=== PATIENT | male | born 1990 | race Caucasian/White ===

== ENCOUNTER 2017-09-08 12:31 | Observation (INO) | payer SELFPAY ==
[2017-09-08] MEDS ORDERED: Ondansetron ODT 8 MG TAB ONE ×2 (12:37→15:39)
[2017-09-08] MEDS ORDERED: Pantoprazole 40 MG VIAL ONE (12:37)
[2017-09-08 13:08] LABS: Hemoglobin 18.4 g/dL (14.0-18.0); Mean Corpuscular HGB CONC 34.2 g/dL (32.0-36.0); Mean Corpuscular Volume 90.9 fl (80.0-94.0); Mean Platelet Volume 7.9 fL (7.4-10.4); Platelet Count 276 thou/uL (130-400); RBC Distribution Width 12.2 % (11.5-14.5); Red Blood Cell (RBC) Count 5.91 mill/uL (4.70-6.10); White Blood Cell (WBC) Count 21.8 thou/uL (4.8-10.8)
--- NOTE | 2017-09-08 13:14 | RAD ---
ABDOMEN 1 VIEW: Date: 09/08/17 HISTORY: Abdominal pain. Hematemesis. FINDINGS: No comparison. Small amount of gas is apparent within the colon. Nondilated gas-filled loop of small bowel overlies the right mid abdomen. Metallic clips overlie the gallbladder fossa. Mild degenerative changes of the hips. IMPRESSION: 1. Status post cholecystectomy. 2. Nonspecific bowel gas pattern. POS: OFF
[2017-09-08 13:15] LABS: INR-International Normal Ratio 1.1; PTT 23.6 SEC (22.9-36.1); Prothrombin Time 14.3 SEC (12.0-14.7)
[2017-09-08 13:28] LABS: ALT (SGPT) 55 U/L (8-55); AST (SGOT) 34 U/L (5-34); Albumin 4.9 g/dL (3.5-5.0); Alkaline Phosphatase 137 U/L (40-150); Anion Gap 19 mmol/L (10-20); BUN (Urea Nitrogen) 5 mg/dL (8.9-20.6); Bilirubin, Total 0.8 mg/dL (0.2-1.2); Calc. Creatinine Clearance 0 mL/min (70-130); Calcium 10.4 mg/dL (7.8-10.44); Carbon Dioxide 24 mmol/L (22-29); Chloride 100 mmol/L (98-107); Estimated GFR-MDRD 85; Globulin 3.5 g/dL (2.4-3.5); Glucose 238 mg/dL (70-105); Lipase 22 U/L (8-78); Potassium 3.4 mmol/L (3.5-5.1); Protein, Total 8.4 g/dL (6.0-8.3); Sodium 140 mmol/L (136-145)
[2017-09-08 13:29] LABS: Band 11 % (5-11); Lymphocytes 6 % (21-51); MDiff Complete? YES; Monocytes 1 % (0-10); Neutrophil 81 % (42-75); PLT Morphology Comment Appears Adequate; RBC Morphology Normal; Reactive Lymphocytes 1 % (0-10)
[2017-09-08 16:16] LABS: Amphetamine Not Detected (NotDetected); Barbiturates Screen Not Detected (NotDetected); Benzodiazepine Screen Not Detected (NotDetected); Cocaine Metabolite Screen Not Detected (NotDetected); Medtox Control Line Valid? VALID (VALID); Medtox Reader # READER 4; Methadone Not Detected (NotDetected); Methamphetamine Not Detected (NotDetected); Opiate Screen Not Detected (NotDetected); Oxycodone Screen Not Detected (NotDetected); Phencyclidine (PCP) Not Detected (NotDetected); THC/Cannabinoid Screen Detected (NotDetected); Tricyclic Screen Not Detected (NotDetected)
[2017-09-08] MEDS ORDERED: Ondansetron HCl/PF 4 MG/2 ML Vial IVP PRN ×2 (16:53→18:04)
[2017-09-08] MEDS ORDERED: Sodium Chloride 0.9% 1,000 ML IV SCH (16:53)
[2017-09-08] MEDS ORDERED: Ondansetron ODT 4 MG TAB SL PRN (16:53)
[2017-09-08] MEDS ORDERED: Metoclopramide HCl 10 MG/2 ML VIAL IVP PRN (17:26)
[2017-09-08] MEDS ORDERED: Morphine 4 MG/ML VIAL SLOW IVP PRN (18:04)
[2017-09-08] MEDS ORDERED: Ondansetron ODT 4 MG TAB PO PRN (18:04)
[2017-09-08] MEDS: Sodium Chloride 0.9% 1,000 ML IV SCH (18:28)
[2017-09-08] MEDS: Pantoprazole 40 MG VIAL IVP SCH (21:38)
[2017-09-08] MEDS: Metoclopramide HCl 10 MG/2 ML VIAL IVP SCH (21:38)
--- NOTE | 2017-09-09 02:11 | HP ---
PRIMARY CARE PHYSICIAN: Dr. Zaki White. CHIEF COMPLAINT: Nausea and vomiting as well as abdominal pain. HISTORY OF PRESENT ILLNESS: Mr. Root is a pleasant 26-year-old gentleman who presents to the [facility] room complaining of severe nausea and vomiting, which he says has been going on since 08/04. H viktoriya says since then he has not been able to keep anything down and he has been having nausea with retch ing and vomiting almost daily. He says sometimes it will even wake up in the middle of the night remye brenda to get up and throw up. He says that it has been going on for about eight years now. He has se en multiple specialists without any known cause to his symptoms. He had been seen Dr. Weaver in the past and then more recently he decided to get a second opinion and has seen a doctor Dr. López at [facility] and [place], and he was scheduled to get a gastric emptying study today. In fact, he was in the pro cess of having the study done when he started to get "violently ill" and was unable to complete the t est. He tried to go home, started vomiting on the way home and as a result he came to the ER for matteo luation. He even says that he started to vomit up some streaks of blood as well. He also says that he has had chronic diarrhea for "years." He says that he has at least 3-5 loose stools a day. There is no blood, no melena. He also admits to a 30-pound weight loss in the last month. 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 He denies having any fever or chills. No dysphagia. When asked if he has had a gastric emptying study in the last 8 years during this time where he has had all these symptoms. He says th at he has never had one before. REVIEW OF SYSTEMS: Constitutional: There have been no fevers, chills, no night sweats. He states that he has lost 30 p ounds in the last month. HEENT: He denies any headache, no dizziness, no visual changes, no sore throat, no rhinorrhea or nec k pain, no adenopathy. Pulmonary: No hemoptysis, no cough, no wheezing. Cardiovascular: He denies any chest pain, no shortness of breath, no PND, no orthopnea. Gastrointestinal: As the history of present illness. Genitourinary: No urinary frequency or hematuria, no hesitancy. Neurologic: No focal weakness, numbness, no seizures. Psychiatric: No symptoms of anxiety or depression. Skin and Integument: No skin changes. No rash. PAST MEDICAL HISTORY: Negative. PAST SURGICAL HISTORY: He has had a cholecystectomy. ALLERGIES: No known drug allergies. SOCIAL HISTORY: He is . He smokes a half a pack of cigarettes daily for 15 years. He says h e occasionally drinks. When asked, he says he has ever smoked marijuana. He initially said no, then he stated well occasionally. When asked when he last smoked marijuana, he said about a month ago; h owever, it is noted that his urine drug screen was positive for cannabis. MEDICATIONS: Omeprazole 40 mg daily as well as Pepcid 20 mg a day. FAMILY HISTORY: Significant for hypertension and bone and uterine cancer. PHYSICAL EXAMINATION: GENERAL: He is alert and oriented. He appears to be in no acute distress. VITAL SIGNS: Blood pressure was 126/87, heart rate 77, respiratory rate of 18, temperature was 97.6, and O2 sat was 98% on room air. HEENT: His pupils are equal, round, and reactive. Extraocular muscles are intact. Sclerae are anic teric. Throat: There is no erythema, no exudates. He has poor dentition. NECK: There is no adenopathy, no bruits. LUNGS: Clear to auscultation. There was no wheezing, no rales. CARDIOVASCULAR: He has a normal S1, S2. I do not appreciate an S3 or S4. No murmurs, clicks or rub s. ABDOMEN: Obese, it is soft, nontender, nondistended. Positive for bowel sounds. There is no reboun d or guarding. EXTREMITIES: There is no clubbing, cyanosis, no edema. NEUROLOGICALLY: The exam is grossly nonfocal. His muscle strength was 5/5 in both his upper and low er extremities. Reflexes are normal. LABORATORY: White blood cell count was 21.8, hemoglobin is 18.4, hematocrit is 53.7, platelet count was 276. INR was 1.1. Sodium 140, potassium 3.4, chloride is 100, CO2 is 24, BUN of 5, creatinine 1 .04, glucose was 238. Urine drug screen was positive for cannabis. He had an abdominal x-ray which was post-cholecystectomy with a nonspecific bowel gas pattern. ASSESSMENT AND PLAN: 1. This is a pleasant 26-year-old gentleman who presents with chronic nausea and vomiting. In fact, he says it has been happening for over eight years now. He has had multiple upper endoscopies as we ll as multiple CT scans and even a colonoscopy which has not revealed the etiology of his symptoms an d was in the process of having a gastric emptying study in which he was unable to tolerate the test. Since he admits to some blood in the vomitus, he will be placed in observation and Gastroenterology will be consulted as he may need another EGD to elucidate the etiology of the hematemesis. In the in terim, he will be placed on IV Protonix as well as Reglan p.r.n. and IV fluids. 2. Elevated glucose, this could be related from the stress of vomiting; however, it is a bit higher than we would expect in this case. Therefore, we will get a hemoglobin A1c to help screen him for di abetes mellitus. 3. Leukocytosis. Again, this may be related to demargination from the vomiting and we will also rep eat the CBC in the a.m. He does not have any obvious source of an infection at this time. He is afe brile and outside of the vomiting, he appears relatively healthy and nontoxic.
[2017-09-09] MEDS: Sodium Chloride 0.9% 1,000 ML IV SCH ×2 (04:26→10:49)
[2017-09-09 04:37] LABS: #Monocytes 0.6 thou/uL (0.11-0.59); %Basophils 0.1 % (0.0-1.0); %Eosinophils 0.1 % (0.0-10.0); %Lymphocytes 17.4 % (21.0-51.0); %Monocytes 4.8 % (0.0-10.0); %Neutrophils 77.6 % (42.0-75.0); Hemoglobin 14.9 g/dL (14.0-18.0); Mean Corpuscular HGB CONC 34.7 g/dL (32.0-36.0); Mean Corpuscular Hemoglobin 31.8 pg (27.0-31.0); Mean Corpuscular Volume 91.5 fl (80.0-94.0); Mean Platelet Volume 7.8 fL (7.4-10.4); Platelet Count 175 thou/uL (130-400); RBC Distribution Width 12.1 % (11.5-14.5); Red Blood Cell (RBC) Count 4.69 mill/uL (4.70-6.10); White Blood Cell (WBC) Count 11.6 thou/uL (4.8-10.8)
[2017-09-09 04:50] LABS: Anion Gap 13 mmol/L (10-20); BUN (Urea Nitrogen) 4 mg/dL (8.9-20.6); Calc. Creatinine Clearance 262 mL/min (70-130); Calcium 8.7 mg/dL (7.8-10.44); Carbon Dioxide 23 mmol/L (22-29); Chloride 108 mmol/L (98-107); Estimated GFR-MDRD Greater than 90; Glucose 103 mg/dL (70-105); Potassium 3.7 mmol/L (3.5-5.1); Sodium 140 mmol/L (136-145)
[2017-09-09] MEDS: Metoclopramide HCl 10 MG/2 ML VIAL IVP SCH ×2 (06:04→16:20)
--- NOTE | 2017-09-09 10:19 | CON ---
DATE OF CONSULTATION: 09/08/2017 REFERRING PHYSICIAN: Ulysses Moss MD REASON FOR CONSULTATION: Persistent nausea and vomiting, and history of vomiting blood. HISTORY OF PRESENT ILLNESS: Mr. Papi Root is a 26-year-old, male seen in the ER this afternoon with a history of intractable nausea and vomiting since this morning. Apparently, he has been seeing Dr. López at [facility] in [place]. This patient has had chronic n ausea and vomiting over the years. Dr. López ordered a gastric-emptying study. The patient went to gastric-emptying study this morning and he had some egg meal. After eating the egg meal, he started to have severe nausea, vomiting, and kept throwing up. The gastric-emptying study could not be done. He states he is not able to stop vomiting, and he vomited some blood. Although he states he vomite d some blood, his blood count is actually normal. The patient has had chronic nausea and vomiting of f and on. The patient saw Dr. Joe Weaver before in 2015 and he had an evaluation. Abdominal CAT scan was negative and also an EGD was negative in 2015. He was hospitalized in November 2016 with s imilar symptoms of abdominal pain, nausea, and vomiting. An abdominal CAT scan done showed questiona ble thickening of the colon and it was called as colitis by the radiologist.. The patient was seen b mateusz French in 10/2016. He underwent an EGD, which revealed severe erosions in lower esophagus. He also had a duodenal polyp that was biopsied. The colonoscopy was negative except for mild sigmo id diverticulosis. The patient was discharged home in 10/2016. He states he did well for about a mo nth and started having nausea and vomiting again. When he wakes up in the morning, he feels sick to stomach and starts throwing up again. This is going on for several months. He has seen Dr. López in 08/2017 and it was told that he could have gastric-emptying problem. The other gastric emptying jayshree dy, which was subsequently done today, but could not be done because of nausea and vomiting. He also complains of upper abdominal pain, predominantly across upper abdomen. There is a history of hemato chezia. He has had no melena. His blood count actually on admission today was actually pretty much normal. There has been some element of hemoconcentration as his hemoglobin is 18.4, hematocrit . His WBC count is . The patient has a history of weight loss of 30 pounds over the last few months. ALLERGIES: None. SOCIAL HISTORY: The patient smokes one half packet of cigarettes per day. He does not drink alcohol . Does not use any drugs. Does not smoke marijuana. MEDICAL ILLNESSES: 1. Recurrent nausea and vomiting, etiology unclear. 2. EGD in 2017 did show few erosions over the distal esophagus and a polyp in the duodenum. 3. Status post cholecystectomy in 2013 for gallstones. He has no diabetes, hypertension, lung disease. FAMILY HISTORY: Mother, chronic acid reflux and Funk's mucosa. MEDICATIONS AT HOME: Include Phenergan and Zofran, it does not help to control the vomiting. REVIEW OF SYSTEMS: Ten-point systems reviewed. Constitutional: History of weight loss. History of recurrent nausea and vomiting. No history of fever. No history of night sweats. No history of any weakness. HEENT: Good vision. No hearing problem. No epistaxis. Neck: No neck pain. Respirato ry: No history of chronic cough, hemoptysis, dyspnea. Cardiovascular: No chest pain. No palpitati on. No dyspnea, orthopnea, or PND. Gastrointestinal: As in history of present illness. Genitourin merari: Unremarkable. Musculoskeletal: Unremarkable. Hematologic: Unremarkable. Neuropsychiatric: Unremarkable. PHYSICAL EXAMINATION: GENERAL: The patient is obese, appears comfortable. He is in no distress. VITAL SIGNS: His vital signs are actually stable. He is afebrile. Pulse is 80, blood pressure 130/ 70. HEENT: Conjunctivae clear. NECK: Supple. No adenitis or thyromegaly. CARDIOVASCULAR: First and second heart sounds are normal. LUNGS: Clear to auscultation. ABDOMEN: Soft and nondistended. Abdomen is actually nontender, although . There is no organo megaly. No masses. EXTREMITIES: No edema. LABORATORY DATA: WBC 20,800, hemoglobin is 18.4, hematocrit 53.7, platelet count is 276,000, polymor phs 81, bands 11, lymphocytes 6. Serum chemistries: Sodium is 140, potassium 3.4, chloride 100, bic arbonate 24, BUN is 5, creatinine is 1.04, glucose 238, calcium 10.4, bilirubin 0.8, AST 34, ALT 55, alkaline phosphatase 137, total protein 8.4, albumin 4.9. Abdominal x-ray is basically unremarkable. CLINICAL IMPRESSION: A 26-year-old, male with intractable nausea and vomiting, which has b een going on for several years. Previous workup including CAT scan, EGD, colonoscopy is negative. T he patient is status post laparoscopic cholecystectomy. (06:20) exam is very benign. Also, th ere is nothing to suggest he has pancreatitis. RECOMMENDATIONS: 1. Start IV Reglan 10 mg q.6-8 hours. 2. If the patient's vomiting persist, continue NG tube. 3. EGD tomorrow morning and I will make further recommendations.
[2017-09-09] MEDS: Pantoprazole 40 MG VIAL IVP SCH (10:50)
--- NOTE | 2017-09-09 15:33 | PDOC.PN ---
- Subjective Encounter Start Date: 09/09/17 Encounter Start Time: 15:27 Mr. Ibrahim was seen today in follow-up. - Objective Resuscitation Status: Resuscitation Status FULL:Full Resuscitation MAR Reviewed: Yes Vital Signs & Weight: Vital Signs (12 hours) Temp Pulse Resp BP BP Pulse Ox 09/09/17 10:46 98.2 F 50 L 20 138/76 96 09/09/17 07:25 98.4 F 66 16 128/62 96 09/09/17 04:00 98.3 F 87 18 132/69 96 Weight Weight 263 lb 8 oz I&O: 09/08/17 09/09/17 09/10/17 06:59 06:59 06:59 Intake Total 1500 Output Total 200 Balance 1300 Result Diagrams: 09/09/17 04:20 09/09/17 04:20 Phys Exam - Physical Examination HEENT: PERRLA Respiratory: no wheezing, no rales, no rhonchi, clear to auscultation bilateral Cardiovascular: RRR, no significant murmur, no rub Gastrointestinal: soft, non-tender, positive bowel sounds Musculoskeletal: no edema Dx/Plan (1) Nausea and vomiting Code(s): R11.2 - NAUSEA WITH VOMITING, UNSPECIFIED Status: Acute - Plan * Nausea and Vomiting- ? etiology EGD was negative- this is chronic and has been ongoing for the past 8 years. He was in the process of obtaining a second opinion from Dr. López at [facility]. He is not happy with the outcome, and his and mother as well. I also recommended that they could pursue another opinion from a tertiary Center such as in [place] or [place]. This is not likely due to a brain tumor, as since this has been for 8 years, it is likely that other symptoms would have arisen by now, and his symptoms are accompanied by abdominal pain * He is stable for discharge home
--- NOTE | 2017-09-09 15:46 | OP ---
DATE OF PROCEDURE: 09/09/2017 OPERATIVE PROCEDURE: Esophagogastroduodenoscopy with biopsy. PREOPERATIVE DIAGNOSES: A 26-year-old male with abdominal pain, nausea, and vomiting, hist ory of vomiting blood yesterday. The patient underwent esophagogastroduodenoscopy. POSTOPERATIVE DIAGNOSES: 1. Normal esophageal mucosa from mild mucosal hyperemia in distal esophagus. 2. Patchy areas of mucosal edema over the proximal stomach and also gastric antrum. 3. Mild duodenitis. No Susan-Canseco tear seen. PROCEDURE IN DETAIL: The patient was placed on his left lateral position and was given sedation by A nesthesia Department. A Pentax video gastroscope under direct vision was passed down the oropharynx, past the GE junction, into the stomach and subsequently into the descending duodenum. The esophagea l mucosa appears normal except for mild mucosal hyperemia over the distal esophagus. No erosions or any ulcers seen. Over the proximal stomach, there is an area of mucosal edema seen. The fundus and cardia, no pathology seen. The gastric body, no pathology seen. The gastric antrum shows patchy are as of mucosal edema. The duodenal bulb again showed mild mucosal erythema. Overall, the exam is alicia y benign. There is no Susan-Canseco tear seen and no ulcer disease seen. The findings were very min imal on the patient's abdominal pain, nausea, and vomiting. RECOMMENDATIONS: 1. Discontinue n.p.o. 2. Clear liquid diet. 3. Diet: As tolerated. 4. Continue IV Reglan. 5. Await gastric biopsy.
[2017-09-09 15:48] VITALS: BP 146/76; TEMP 98.1
[2017-09-09] MEDS ORDERED: Lidocaine 1% PF 5 ML VIAL ONE (20:09)
[2017-09-09] MEDS ORDERED: ePHEDrine/0.9% NaCl/PF SYRINGE 50 mg/10 ml ONE (20:09)
[2017-09-09] MEDS ORDERED: PROPOFOL 200 MG/20 ML VIAL ONE (20:09)
--- NOTE | 2017-09-10 01:44 | DIS ---
PRIMARY CARE PHYSICIAN: Dr. Zaki White. DATE OF ADMISSION: 09/08/2017 DATE OF DISCHARGE: 09/09/2017 DISCHARGE DISPOSITION: Home. PRIMARY DISCHARGE DIAGNOSES: 1. Nausea and vomiting, etiology is known. 2. Cannabis abuse. DISCHARGE MEDICATIONS: Include Zofran 4 mg the orally disintegrating tablet q.6 hours as needed, cao toprazole 40 mg daily, and famotidine 40 mg daily. PROCEDURES DONE DURING ADMISSION: The patient had an upper endoscopy which was significant for some mild duodenitis. There was no Susan-Canseco tear. There were some patchy areas of mucosal edema, bu t otherwise normal. The patient also had an abdominal x-ray, which demonstrated a nonspecific bowel gas pattern. CODE STATUS: FULL CODE. ALLERGIES: No known drug allergies. HOSPITAL COURSE: Mr. Root is a 26-year-old gentleman who presented to the emergency room with com plaints of nausea and vomiting. He says this has been a persistent problem over the last 8 years. Nathan sadler has had numerous evaluations from different hand turner, all of which have been unrevealing. He had actually been seeing Dr. López and a second opinion where he was undergoing a scheduled efren luis emptying study where he was unable to complete the test due to severe nausea and vomiting, he say s after he tried to swallow the egg. This is when he came to our facility for evaluation. He was pl aced in observation and underwent upper endoscopy. This was essentially unrevealing with more or les s negative study. The patient will be discharged home. We will place him on Zofran as needed for th e nausea and vomiting and have recommended that he follow up with Dr. López to see what other testing can be done and if there was another way of testing for gastroparesis besides the standard gastric e mptying study. I have also explained to him that if he is unhappy with the workup which has been don e so far with regard to the specialist here as well as specialist that he have seen in the community, i.e., Dr. López, then he can refer himself to a tertiary center such as in [place] or [facility] in [place] to see if they have any other ideas or recommendations to offer.
== END 2017-09-09 16:29 | disposition home or self-care (01) ==
LOC: ERS 12:31 → 2SW 15:34 → ERS 15:35
PROVIDERS: ADMIT Internal Medicine; ATTEND Internal Medicine
PROC: 0DB68ZX Excision of Stomach, Via Natural or Artificial Opening Endoscopic, Diagnostic (ICD-10-PCS; principal; 2017-09-09)
DX: R11.2 Nausea with vomiting, unspecified (principal); R10.9 Unspecified abdominal pain; K29.80 Duodenitis without bleeding; F17.210 Nicotine dependence, cigarettes, uncomplicated; R73.09 Other abnormal glucose; D72.829 Elevated white blood cell count, unspecified; F12.10 Cannabis abuse, uncomplicated; Z79.899 Other long term (current) drug therapy; Z90.49 Acquired absence of other specified parts of digestive tract; Z98.890 Other specified postprocedural states
CPT/HCPCS: 36415; 74018; 80048; 80053; 80306; 83036; 83690; 85025; 85610; 85730; 86850; 86900; 86901; 88305; 88312; 90471; 90732; 96361; 96374; 96375; 96376; C9113; G0009; G0378; J2001; J2270; J2405; J2704; J2765

== ENCOUNTER 2018-05-24 13:47 | Emergency (ER) | payer SELFPAY ==
[~2018-05-24 13:47] MED LIST: Iopamidol 370 76% 100 ML VIAL ONE
[2018-05-24 14:52] LABS: #Basophils 0.1 thou/uL (0.0-0.2); #Lymphocytes 2.3 thou/uL (1.20-3.40); #Monocytes 0.7 thou/uL (0.11-0.59); #Neutrophils 8.6 thou/uL (1.40-6.50); %Basophils 0.5 % (0.0-1.0); %Eosinophils 0.4 % (0.0-10.0); %Lymphocytes 19.3 % (21.0-51.0); %Monocytes 6.2 % (0.0-10.0); %Neutrophils 73.6 % (42.0-75.0); Hemoglobin 18.3 g/dL (14.0-18.0); Mean Corpuscular HGB CONC 33.4 g/dL (32.0-36.0); Mean Corpuscular Hemoglobin 30.1 pg (27.0-31.0); Mean Corpuscular Volume 90.2 fL (78.0-98.0); Mean Platelet Volume 8.2 fL (7.4-10.4); Platelet Count 218 thou/uL (130-400); RBC Distribution Width 12.5 % (11.5-14.5); Red Blood Cell (RBC) Count 6.06 mill/uL (4.70-6.10); White Blood Cell (WBC) Count 11.7 thou/uL (4.8-10.8)
[2018-05-24 15:14] LABS: ALT (SGPT) 91 U/L (8-55); AST (SGOT) 53 U/L (5-34); Albumin 4.4 g/dL (3.5-5.0); Alkaline Phosphatase 129 U/L (40-150); Anion Gap 19 mmol/L (10-20); BUN (Urea Nitrogen) 9 mg/dL (8.9-20.6); Bilirubin, Total 1.5 mg/dL (0.2-1.2); Calc. Creatinine Clearance 0 mL/min (70-130); Calcium 10.4 mg/dL (7.8-10.44); Carbon Dioxide 26 mmol/L (22-29); Chloride 91 mmol/L (98-107); Estimated GFR-MDRD Greater than 90; Globulin 3.5 g/dL (2.4-3.5); Glucose 97 mg/dL (70-105); Potassium 3.3 mmol/L (3.5-5.1); Protein, Total 7.9 g/dL (6.0-8.3); Sodium 133 mmol/L (136-145)
[2018-05-24] MEDS ORDERED: Morphine 4 MG/ML VIAL ONE ×2 (18:01→19:45)
[2018-05-24] MEDS ORDERED: Ondansetron PF 4 MG/2 ML Vial ONE ×2 (18:01→19:45)
--- NOTE | 2018-05-24 20:04 | CT ---
CT ABDOMEN WITH CONTRAST CT PELVIS WITH CONTRAST: DATE: 05/24/18 at 7:04 p.m. HISTORY: 27-year-old male with right upper quadrant abdominal pain. COMPARISON: 10/12/16 TECHNIQUE: IV injection of iodinated contrast media: 100 mL Isovue 370 Oral contrast media: Not administered. FINDINGS: Cholecystectomy clips in the gallbladder fossa are again noted. There is diffusely low hepatic attenu ation, lower than on the previous study, consistent with a greater degree of fatty liver. No portal v ein or hepatic vein thrombosis. No intrahepatic biliary ductal dilation. No solid or cystic hepatic m ass lesion. No ascites or pneumoperitoneum. Normal appendix, urinary bladder, abdominal aorta, kidney s, adrenals, pancreas, and spleen. No colonic diverticulitis. No small bowel dilation. IMPRESSION: 1. Hepatic steatosis. 2. Status post cholecystectomy. VU Krause POS: ZEKE
--- NOTE | 2018-05-24 20:10 | ULT ---
ULTRASOUND ABDOMEN LIMITED: (RIGHT UPPER QUADRANT) 05/24/18 at 7:25 p.m. HISTORY: Right upper quadrant abdominal pain in a 27-year-old male. FINDINGS: Gallbladder: Surgically absent. Common duct: 6 mm. Liver: Diffusely increased echogenicity consistent with fatty liver. Pancreas: Poorly visualized. Right kidney: No hydronephrosis. IMPRESSION: 1. Status post cholecystectomy. 2. Hepatic steatosis. VU Krause POS: ZEKE
[2018-05-24 21:32] LABS: Bilirubin Moderate (Negative); Blood, Urine Negative (Negative); Clarity CLEAR (Clear); Glucose, Urine (Dipstick) Negative (Negative); Leukocyte Negative (Negative); Nitrite Negative (Negative); Protein, Urine (Dipstick) Trace mg/dL (Neg-Trace)
[2018-05-24 21:37] LABS: Specific Gravity, Urine Greater than 1.060 (1.002-1.036)
[2018-05-24] MEDS ORDERED: Ketorolac Tromethamine 30 MG/ML VIAL ONE (21:37)
== END 2018-05-24 22:00 | disposition home or self-care (01) ==
LOC: ERS 13:47
DX: R10.11 Right upper quadrant pain (principal); K21.9 Gastro-esophageal reflux disease without esophagitis; F17.210 Nicotine dependence, cigarettes, uncomplicated
CPT/HCPCS: 36415; 74177; 76705; 80053; 81003; 83690; 85025; 96361; 96374; 96375; 96376; J1885; J2270; J2405

== ENCOUNTER 2020-04-11 22:53 | Emergency (ER) | payer SELFPAY ==
[2020-04-11 23:47] LABS: #Basophils 0.1 thou/uL (0.0-0.2); #Eosinphils 0.3 thou/uL (0.0-0.7); #Monocytes 0.5 thou/uL (0.11-0.59); #Neutrophils 7.1 thou/uL (1.40-6.50); %Basophils 0.7 % (0.0-1.0); %Eosinophils 2.8 % (0.0-10.0); %Lymphocytes 27.5 % (21.0-51.0); %Monocytes 4.4 % (0.0-10.0); %Neutrophils 64.6 % (42.0-75.0); Hemoglobin 16.7 g/dL (14.0-18.0); Mean Corpuscular HGB CONC 34.7 g/dL (32.0-36.0); Mean Corpuscular Hemoglobin 30.6 pg (27.0-31.0); Mean Corpuscular Volume 88.4 fL (78.0-98.0); Mean Platelet Volume 7.9 fL (7.4-10.4); Platelet Count 221 thou/uL (130-400); RBC Distribution Width 12.2 % (11.5-14.5); Red Blood Cell (RBC) Count 5.44 mill/uL (4.70-6.10)
[2020-04-12 00:06] LABS: ALT (SGPT) 65 U/L (8-55); AST (SGOT) 33 U/L (5-34); Albumin 4.3 g/dL (3.5-5.0); Alkaline Phosphatase 131 U/L (40-110); Anion Gap 17 mmol/L (10-20); BUN (Urea Nitrogen) 6 mg/dL (8.9-20.6); Bilirubin, Total 0.7 mg/dL (0.2-1.2); Calc. Creatinine Clearance 0 mL/min (70-130); Calcium 9.3 mg/dL (7.8-10.44); Carbon Dioxide 26 mmol/L (22-29); Chloride 100 mmol/L (98-107); Globulin 3.2 g/dL (2.4-3.5); Glucose 94 mg/dL (70-105); Protein, Total 7.5 g/dL (6.0-8.3); Sodium 139 mmol/L (136-145)
[2020-04-12 00:49] LABS: Bilirubin Negative (Negative); Blood, Urine Negative (Negative); Clarity Clear (Clear); Glucose, Urine (Dipstick) Normal (Negative); Ketone, Urine 60 mg/dL (Negative); Leukocyte Negative Leu/uL (Negative); Nitrite Negative (Negative); Protein, Urine (Dipstick) Negative (Neg-Trace); pH, Urine 5.5 (5.0-9.0)
[2020-04-12] MEDS ORDERED: Morphine 4 MG/ML VIAL ONE (02:16)
[2020-04-12] MEDS ORDERED: Ondansetron PF 4 MG/2 ML Vial ONE (02:16)
--- NOTE | 2020-04-12 11:48 | CT ---
PRELIMINARY REPORT/[facility]/EMERGENCY AFTER HOURS PROCEDURE: EXAM: CT Abdomen and Pelvis with Intravenous Contrast CLINICAL HISTORY: PT REPORTS PAIN "JUST TO THE RIGHT OF MY BELLY BUTTON." ALSO REPORTS NAUSEA AND RADAMES RRHEA. DENIES FEVER TECHNIQUE: Axial computed tomography images of the abdomen and pelvis with intravenous contrast. CONTRAST: With; [id number] 100 ML COMPARISON: None provided. FINDINGS: LUNG BASES: No basilar airspace consolidation or pleural effusion. LIVER: Hepatic steatosis. GALLBLADDER AND BILE DUCTS: The gallbladder is surgically absent. No ductal dilation. PANCREAS: Unremarkable. SPLEEN: Unremarkable. ADRENAL GLANDS: Unremarkable. KIDNEYS, URETERS, AND BLADDER: Unremarkable. No hydronephrosis or nephrolithiasis. No ureteral or shira dder calculi. STOMACH AND BOWEL: The stomach and small bowel are unremarkable. Colonic wall thickening and submuco karina edema extending from the cecum to the rectum. Scattered right-sided colonic diverticulosis. APPENDIX: No CT evidence for appendicitis. PERITONEUM: No free fluid. No free air. LYMPH NODES: No lymphadenopathy. REPRODUCTIVE: Unremarkable as visualized. VASCULATURE: No aortic aneurysm. BONES: No fracture or suspicious osseous abnormality. ABDOMINAL WALL AND SOFT TISSUES: Unremarkable. IMPRESSION: 1. Pancolitis of a likely infectious or inflammatory etiology. Vascular and neoplastic etiologies a re much less likely. 2. Additional findings as described above. ELECTRONICALLY SIGNED BY: James Belcher MD Apr 12, 2020 2:05:37 AM EMBROIDERY FINISHER FINAL REPORT CT ABDOMEN AND PELVIS WITH IV CONTRAST: Liver, spleen, pancreas, and kidneys unremarkable. Small bowel loops appear normal. Preliminary report described mural thickening of the colon; however, this is suboptimally evaluated d ue to nondistention. Mild colitis cannot be excluded. I am in agreement with the preliminary report. POS: AGW
== END 2020-04-12 02:54 | disposition home or self-care (01) ==
LOC: ERS 22:53
DX: K51.00 Ulcerative (chronic) pancolitis without complications (principal); K21.9 Gastro-esophageal reflux disease without esophagitis; F17.210 Nicotine dependence, cigarettes, uncomplicated
CPT/HCPCS: 36415; 74177; 80053; 81003; 85025; 96374; 96375; J2270; J2405

== ENCOUNTER 2020-09-12 13:48 | Inpatient (IN) | payer SELFPAY ==
[~2020-09-12 13:48] MED LIST changes: -Iopamidol 370 76% 100 ML VIAL ONE; +Iopamidol-370 76% 500 ML 1 ML ONE
[2020-09-12] MEDS ORDERED: Ondansetron ODT 4 MG TAB ONE ×2 (14:28→15:13)
[2020-09-12 14:40] LABS: #Basophils 0.1 thou/uL (0.0-0.2); #Eosinphils 0.1 thou/uL (0.0-0.7); #Lymphocytes 1.9 thou/uL (1.20-3.40); #Monocytes 0.9 thou/uL (0.11-0.59); #Neutrophils 13.6 thou/uL (1.40-6.50); %Basophils 0.3 % (0.0-1.0); %Eosinophils 0.7 % (0.0-10.0); %Lymphocytes 11.7 % (21.0-51.0); %Monocytes 5.4 % (0.0-10.0); %Neutrophils 81.8 % (42.0-75.0); Hemoglobin 18.5 g/dL (14.0-18.0); Mean Corpuscular HGB CONC 34.3 g/dL (32.0-36.0); Mean Corpuscular Hemoglobin 30.3 pg (27.0-31.0); Mean Corpuscular Volume 88.3 fL (78.0-98.0); Mean Platelet Volume 8.2 fL (7.4-10.4); Platelet Count 238 thou/uL (130-400); RBC Distribution Width 12.5 % (11.5-14.5); White Blood Cell (WBC) Count 16.6 thou/uL (4.8-10.8)
[2020-09-12 14:55] LABS: ALT (SGPT) 52 U/L (8-55); AST (SGOT) 25 U/L (5-34); Albumin 4.5 g/dL (3.5-5.0); Alkaline Phosphatase 124 U/L (40-110); Anion Gap 15 mmol/L (10-20); BUN (Urea Nitrogen) 11 mg/dL (8.9-20.6); Bilirubin, Total 1.6 mg/dL (0.2-1.2); Calc. Creatinine Clearance 0 mL/min (70-130); Calcium 10.1 mg/dL (7.8-10.44); Carbon Dioxide 31 mmol/L (22-29); Chloride 91 mmol/L (98-107); Globulin 3.5 g/dL (2.4-3.5); Glucose 144 mg/dL (70-105); Lipase 40 U/L (8-78); Sodium 134 mmol/L (136-145)
[2020-09-12 15:03] LABS: Potassium 2.8 mmol/L (3.5-5.1)
[2020-09-12] MEDS ORDERED: Morphine 4 MG/ML VIAL ONE (15:28)
[2020-09-12] MEDS ORDERED: Promethazine HCl 25 MG/ML VIAL ONE (15:28)
[2020-09-12] MEDS ORDERED: Potassium Chloride 20 MEQ TAB ONE (16:39)
[2020-09-12] MEDS ORDERED: NS 0.9% w/ 40 MEQ KCL 1,000 ML IV SCH (16:45)
[2020-09-12] MEDS ORDERED: Piperacillin/Tazobactam 4.5 GM VIAL ONE (17:36)
[2020-09-12] MEDS ORDERED: Acetaminophen 325 MG TAB PO PRN (17:57)
[2020-09-12] MEDS ORDERED: HYDROcodone/Acetaminophen 5/325 mg Tablet PO PRN (17:57)
[2020-09-12 18:21] LABS: Bilirubin Negative (Negative); Blood, Urine Negative (Negative); Clarity Clear (Clear); Glucose, Urine (Dipstick) Normal (Negative); Ketone, Urine 20 mg/dL (Negative); Leukocyte Negative Leu/uL (Negative); Nitrite Negative (Negative); Protein, Urine (Dipstick) 20 mg/dL (Neg-Trace); Urobilinogen Normal mg/dL (Less than 2)
[2020-09-12 18:22] LABS: Specific Gravity, Urine 1.048 (1.002-1.036)
[2020-09-12] MEDS ORDERED: Fioricet 325/50/40 mg Tablet PO PRN (18:25)
[2020-09-12 20:06] VITALS: BMI 42.8
[2020-09-12] MEDS: Famotidine/PF 20 mg/2ml Vial SLOW IVP SCH (22:06)
[2020-09-12] MEDS: Scopolamine 1.5 mg/72 hour Patch TD SCH (22:07)
[2020-09-13] MEDS: NS 0.9% w/ 20 MEQ KCL 1,000 ML/1,000 ML BAG IV SCH ×4 (00:21→16:33)
[2020-09-13 03:25] LABS: SARS-CoV-2 NAA Rapid Test Not Detected (NotDetected)
[2020-09-13 05:17] LABS: #Basophils 0.1 thou/uL (0.0-0.2); #Eosinphils 0.2 thou/uL (0.0-0.7); #Lymphocytes 2.6 thou/uL (1.20-3.40); #Monocytes 0.7 thou/uL (0.11-0.59); #Neutrophils 8.7 thou/uL (1.40-6.50); %Basophils 0.5 % (0.0-1.0); %Eosinophils 1.3 % (0.0-10.0); %Lymphocytes 21.4 % (21.0-51.0); %Neutrophils 70.9 % (42.0-75.0); Hemoglobin 15.7 g/dL (14.0-18.0); Mean Corpuscular Hemoglobin 29.4 pg (27.0-31.0); Mean Corpuscular Volume 89.1 fL (78.0-98.0); Mean Platelet Volume 8.3 fL (7.4-10.4); Platelet Count 206 thou/uL (130-400); RBC Distribution Width 12.3 % (11.5-14.5); Red Blood Cell (RBC) Count 5.33 mill/uL (4.70-6.10); White Blood Cell (WBC) Count 12.2 thou/uL (4.8-10.8)
[2020-09-13 05:33] LABS: Anion Gap 12 mmol/L (10-20); BUN (Urea Nitrogen) 7 mg/dL (8.9-20.6); Calc. Creatinine Clearance 276 mL/min (70-130); Carbon Dioxide 27 mmol/L (22-29); Chloride 101 mmol/L (98-107); Glucose 101 mg/dL (70-105); Potassium 3.5 mmol/L (3.5-5.1); Sodium 136 mmol/L (136-145)
[2020-09-13] MEDS: Famotidine/PF 20 mg/2ml Vial SLOW IVP SCH ×2 (08:31→20:23)
[2020-09-13] MEDS: Ondansetron PF 4 MG/2 ML Vial IVP PRN (14:10)
[2020-09-13] MEDS: Promethazine HCl 12.5 MG in Sodium Chloride 0.9% 50 ML IVPB PRN ×2 (15:16→21:36)
[2020-09-14] MEDS: NS 0.9% w/ 20 MEQ KCL 1,000 ML/1,000 ML BAG IV SCH ×3 (00:06→20:43)
[2020-09-14] MEDS: Promethazine HCl 12.5 MG in Sodium Chloride 0.9% 50 ML IVPB PRN ×3 (04:56→18:53)
[2020-09-14] MEDS: Famotidine/PF 20 mg/2ml Vial SLOW IVP SCH ×2 (08:20→20:43)
[2020-09-14] MEDS: Ondansetron PF 4 MG/2 ML Vial IVP PRN (13:37)
[2020-09-14] MEDS ORDERED: Ketorolac Tromethamine 30 MG/ML VIAL IVP PRN (21:42)
[2020-09-15] MEDS: Ondansetron PF 4 MG/2 ML Vial IVP PRN (03:44)
[2020-09-15] MEDS: NS 0.9% w/ 20 MEQ KCL 1,000 ML/1,000 ML BAG IV SCH ×2 (03:44→15:51)
[2020-09-15 08:14] LABS: #Basophils 0.1 thou/uL (0.0-0.2); #Eosinphils 0.2 thou/uL (0.0-0.7); #Lymphocytes 2.8 thou/uL (1.20-3.40); #Monocytes 0.5 thou/uL (0.11-0.59); #Neutrophils 7.9 thou/uL (1.40-6.50); %Basophils 0.9 % (0.0-1.0); %Eosinophils 1.5 % (0.0-10.0); %Lymphocytes 24.6 % (21.0-51.0); %Monocytes 4.5 % (0.0-10.0); %Neutrophils 68.6 % (42.0-75.0); Hemoglobin 16.1 g/dL (14.0-18.0); Mean Corpuscular HGB CONC 33.4 g/dL (32.0-36.0); Mean Corpuscular Hemoglobin 29.9 pg (27.0-31.0); Mean Corpuscular Volume 89.5 fL (78.0-98.0); Mean Platelet Volume 8.4 fL (7.4-10.4); Platelet Count 195 thou/uL (130-400); RBC Distribution Width 12.2 % (11.5-14.5); Red Blood Cell (RBC) Count 5.39 mill/uL (4.70-6.10); White Blood Cell (WBC) Count 11.5 thou/uL (4.8-10.8)
[2020-09-15 08:21] LABS: Anion Gap 13 mmol/L (10-20); BUN (Urea Nitrogen) 4 mg/dL (8.9-20.6); Calc. Creatinine Clearance 298 mL/min (70-130); Calcium 9.1 mg/dL (7.8-10.44); Carbon Dioxide 23 mmol/L (22-29); Chloride 104 mmol/L (98-107); Glucose 85 mg/dL (70-105); Potassium 3.7 mmol/L (3.5-5.1); Sodium 136 mmol/L (136-145)
[2020-09-15 08:30] VITALS: BP 143/90; TEMP 98.6
[2020-09-15] MEDS: Famotidine/PF 20 mg/2ml Vial SLOW IVP SCH (08:52)
[2020-09-15] MEDS: Scopolamine 1.5 mg/72 hour Patch TD SCH (15:38)
== END 2020-09-15 16:29 | disposition home or self-care (01) | DRG 395 ==
LOC: ERS 13:48 → SJJU 17:15 → OBSVTOIN 09-14 16:46
PROVIDERS: ADMIT Family Medicine; ATTEND Family Medicine
DX: R11.15 Cyclical vomiting syndrome unrelated to migraine (principal); E87.6 Hypokalemia; D72.829 Elevated white blood cell count, unspecified; K21.9 Gastro-esophageal reflux disease without esophagitis; F17.210 Nicotine dependence, cigarettes, uncomplicated; Z20.822 Contact with and (suspected) exposure to COVID-19; E86.9 Volume depletion, unspecified; Z90.49 Acquired absence of other specified parts of digestive tract
CPT/HCPCS: 0240U; 36415; 74177; 80048; 80053; 81003; 83690; 83735; 85025; 87040; 96365; 96367; 96375; 96376; G0378; J1885; J2270; J2405; J2543; J2550; J3480; Q0162; S0028

== ENCOUNTER 2021-03-28 21:01 | Inpatient (IN) | payer SELFPAY ==
[2021-03-28 22:00] LABS: #Basophils 0.1 thou/uL (0.0-0.2); #Eosinphils 0.2 thou/uL (0.0-0.7); #Lymphocytes 2.9 thou/uL (1.20-3.40); #Neutrophils 7.5 thou/uL (1.40-6.50); %Basophils 0.5 % (0.0-1.0); %Eosinophils 1.7 % (0.0-10.0); %Lymphocytes 25.1 % (21.0-51.0); %Monocytes 8.3 % (0.0-10.0); %Neutrophils 64.4 % (42.0-75.0); Mean Corpuscular HGB CONC 35.8 g/dL (32.0-36.0); Mean Corpuscular Volume 89.4 fL (78.0-98.0); Mean Platelet Volume 9.3 fL (7.4-10.4); Platelet Count 227 thou/uL (130-400); RBC Distribution Width 12.4 % (11.5-14.5); Red Blood Cell (RBC) Count 5.93 mill/uL (4.70-6.10); White Blood Cell (WBC) Count 11.6 thou/uL (4.8-10.8)
[2021-03-28] MEDS ORDERED: Promethazine HCl 25 MG/ML VIAL ONE (22:07)
[2021-03-28] MEDS ORDERED: diphenhydrAMINE 50 MG/ML VIAL ONE (23:22)
[2021-03-28] MEDS ORDERED: Haloperidol Lactate 5 MG/ML VIAL ONE (23:22)
[2021-03-28 23:28] LABS: Albumin 4.1 g/dL (3.5-5.0)
[2021-03-28 23:29] LABS: Chloride 78 mmol/L (98-107); Sodium 126 mmol/L (136-145)
[2021-03-28 23:30] LABS: Calcium 9.8 mg/dL (7.8-10.44); Glucose 101 mg/dL (70-105)
[2021-03-28 23:31] LABS: Globulin 3.2 g/dL (2.4-3.5); Protein, Total 7.3 g/dL (6.0-8.3)
[2021-03-28 23:32] LABS: Anion Gap 18 mmol/L (10-20); Bilirubin, Total 1.8 mg/dL (0.2-1.2); Carbon Dioxide 32 mmol/L (22-29)
[2021-03-28 23:33] LABS: Alkaline Phosphatase 105 U/L (40-110)
[2021-03-28 23:34] LABS: Calc. Creatinine Clearance 0 mL/min (70-130)
[2021-03-28 23:35] LABS: BUN (Urea Nitrogen) 10 mg/dL (8.9-20.6)
[2021-03-28 23:36] LABS: ALT (SGPT) 89 U/L (8-55); AST (SGOT) 44 U/L (5-34); Lipase 41 U/L (8-78)
[2021-03-28 23:37] LABS: Potassium 2.3 mmol/L (3.5-5.1)
[2021-03-28] MEDS ORDERED: Potassium Chloride 20 MEQ TAB ONE (23:39)
[2021-03-28] MEDS ORDERED: D5 1/2 NS w/20 mEq KCL 1,000 ML ONE (23:53)
[2021-03-29] MEDS ORDERED: Magnesium 2 GM/50 ML BAG (IN WATER) ONE (01:05)
[2021-03-29 01:13] LABS: Lactic Acid 2.5 mmol/L (0.5-2.2)
[2021-03-29 01:20] LABS: Bilirubin Negative (Negative); Blood, Urine Negative (Negative); Clarity Clear (Clear); Glucose, Urine (Dipstick) Normal (Negative); Ketone, Urine Negative (Negative); Leukocyte Negative Leu/uL (Negative); Nitrite Negative (Negative); Protein, Urine (Dipstick) Negative (Neg-Trace); Specific Gravity, Urine 1.026 (1.002-1.036); Urobilinogen Normal mg/dL (Less than 2)
[2021-03-29] MEDS ORDERED: Promethazine HCl 25 MG in Sodium Chloride 0.9% 50 ML IVPB PRN ×2 (02:09→06:38)
[2021-03-29] MEDS ORDERED: D5 1/2 NS w/20 mEq KCL 1,000 ML IV SCH (02:15)
[2021-03-29] MEDS ORDERED: Acetaminophen 325 MG TAB PO PRN ×2 (02:15→08:51)
[2021-03-29 02:48] VITALS: BMI 42.7
[2021-03-29] MEDS ORDERED: Ondansetron PF 4 MG/2 ML Vial IVP PRN (04:14)
[2021-03-29] MEDS: D5 1/2 NS w/20 mEq KCL 1,000 ML IV SCH ×2 (04:28→14:29)
[2021-03-29] MEDS ORDERED: Electrolyte Replacement Protocol 1 EACH FS SCH (04:30)
[2021-03-29] MEDS: Potassium Chloride 20 MEQ in Premix Bag 1 BAG IVPB SCH ×2 (04:58→19:30)
[2021-03-29 05:30] LABS: #Eosinphils 0.3 thou/uL (0.0-0.7); #Lymphocytes 3.6 thou/uL (1.20-3.40); #Neutrophils 6.2 thou/uL (1.40-6.50); %Basophils 0.4 % (0.0-1.0); %Eosinophils 2.3 % (0.0-10.0); %Lymphocytes 32.2 % (21.0-51.0); %Monocytes 8.9 % (0.0-10.0); %Neutrophils 56.2 % (42.0-75.0); Hemoglobin 15.6 g/dL (14.0-18.0); Mean Corpuscular HGB CONC 34.7 g/dL (32.0-36.0); Mean Corpuscular Hemoglobin 31.2 pg (27.0-31.0); Mean Corpuscular Volume 89.8 fL (78.0-98.0); Mean Platelet Volume 8.8 fL (7.4-10.4); Platelet Count 189 thou/uL (130-400); RBC Distribution Width 12.3 % (11.5-14.5); Red Blood Cell (RBC) Count 4.99 mill/uL (4.70-6.10); White Blood Cell (WBC) Count 11.1 thou/uL (4.8-10.8)
[2021-03-29 05:40] LABS: Anion Gap 12 mmol/L (10-20); BUN (Urea Nitrogen) 8 mg/dL (8.9-20.6); Calc. Creatinine Clearance 272 mL/min (70-130); Carbon Dioxide 33 mmol/L (22-29); Chloride 85 mmol/L (98-107); Glucose 115 mg/dL (70-105); Sodium 128 mmol/L (136-145)
[2021-03-29] MEDS: Nicotine 14 MG PATCH TD SCH (05:43)
[2021-03-29 05:45] LABS: Potassium 2.4 mmol/L (3.5-5.1)
[2021-03-29] MEDS ORDERED: Hydrocerin (Eucerin) Cream 120 gm Jar TOP PRN (06:39)
[2021-03-29] MEDS ORDERED: GUAIFENESIN SF SOLN 200 MG/10 ML UDCUP PO PRN (06:39)
[2021-03-29] MEDS ORDERED: Loratadine 10 MG TAB PO PRN (06:39)
[2021-03-29] MEDS ORDERED: Bisacodyl 5 MG TAB PO PRN (06:39)
[2021-03-29] MEDS ORDERED: Cepastat Lozenges 1 LOZ PO PRN (06:39)
[2021-03-29] MEDS ORDERED: Zolpidem Tartrate 5 MG TAB PO PRN (06:39)
[2021-03-29] MEDS ORDERED: Loperamide HCl 2 MG CAP PO PRN (06:39)
[2021-03-29] MEDS ORDERED: Ondansetron ODT 4 MG TAB PO PRN (06:39)
[2021-03-29] MEDS ORDERED: Senokot S 8.6-50 MG TAB PO PRN (06:39)
[2021-03-29] MEDS ORDERED: Sodium Chloride 0.65% Nasal 44 ML BOT EA NARE PRN (06:39)
[2021-03-29] MEDS ORDERED: Calcium Carbonate 500 MG ChewTAB PO PRN (06:39)
[2021-03-29] MEDS ORDERED: hydrALAZINE 20 MG/ML VIAL SLOW IVP PRN (06:39)
[2021-03-29] MEDS ORDERED: HYDROcodone/Acetaminophen 5/325 mg Tablet PO PRN (08:46)
[2021-03-29] MEDS ORDERED: Acetaminophen 500 MG TAB PO PRN (08:46)
[2021-03-29] MEDS ORDERED: Potassium Chloride 20 MEQ TAB PO SCH ×3 (09:00→17:45)
[2021-03-29] MEDS: Pantoprazole 40 MG VIAL IVP SCH (09:53)
[2021-03-29 11:20] LABS: Phosphorus 2.6 mg/dL (2.3-4.7)
[2021-03-29 11:23] LABS: Anion Gap 10 mmol/L (10-20); BUN (Urea Nitrogen) 6 mg/dL (8.9-20.6); Calc. Creatinine Clearance 269 mL/min (70-130); Calcium 8.7 mg/dL (7.8-10.44); Carbon Dioxide 34 mmol/L (22-29); Chloride 86 mmol/L (98-107); Glucose 100 mg/dL (70-105); Magnesium 2.1 mg/dL (1.6-2.6); Sodium 127 mmol/L (136-145)
[2021-03-29 11:28] LABS: Potassium 2.7 mmol/L (3.5-5.1)
[2021-03-30] MEDS: D5 1/2 NS w/20 mEq KCL 1,000 ML IV SCH ×2 (00:31→13:17)
[2021-03-30 05:29] LABS: #Eosinphils 0.2 thou/uL (0.0-0.7); #Lymphocytes 2.8 thou/uL (1.20-3.40); #Monocytes 0.6 thou/uL (0.11-0.59); #Neutrophils 3.9 thou/uL (1.40-6.50); %Basophils 0.5 % (0.0-1.0); %Eosinophils 3.1 % (0.0-10.0); %Monocytes 7.8 % (0.0-10.0); %Neutrophils 51.7 % (42.0-75.0); Mean Corpuscular HGB CONC 34.3 g/dL (32.0-36.0); Mean Corpuscular Hemoglobin 31.1 pg (27.0-31.0); Mean Corpuscular Volume 90.8 fL (78.0-98.0); Mean Platelet Volume 8.7 fL (7.4-10.4); Platelet Count 169 thou/uL (130-400); RBC Distribution Width 12.3 % (11.5-14.5); Red Blood Cell (RBC) Count 4.82 mill/uL (4.70-6.10); White Blood Cell (WBC) Count 7.5 thou/uL (4.8-10.8)
[2021-03-30] MEDS: Nicotine 14 MG PATCH TD SCH (05:49)
[2021-03-30 05:56] LABS: ALT (SGPT) 62 U/L (8-55); AST (SGOT) 30 U/L (5-34); Albumin 3.3 g/dL (3.5-5.0); Alkaline Phosphatase 80 U/L (40-110); Anion Gap 10 mmol/L (10-20); BUN (Urea Nitrogen) 6 mg/dL (8.9-20.6); Bilirubin, Total 0.7 mg/dL (0.2-1.2); Calc. Creatinine Clearance 279 mL/min (70-130); Calcium 8.8 mg/dL (7.8-10.44); Carbon Dioxide 33 mmol/L (22-29); Chloride 92 mmol/L (98-107); Globulin 2.7 g/dL (2.4-3.5); Glucose 118 mg/dL (70-105); Phosphorus 2.4 mg/dL (2.3-4.7); Sodium 132 mmol/L (136-145)
[2021-03-30 06:01] LABS: Potassium 2.8 mmol/L (3.5-5.1)
[2021-03-30] MEDS: Potassium Chloride 20 MEQ TAB PO SCH ×3 (07:56→18:11)
[2021-03-30] MEDS: Pantoprazole 40 MG VIAL IVP SCH (10:00)
[2021-03-30] MEDS ORDERED: Magnesium 2 GM/50 ML 2 GM in Premix Bag 1 BAG IVPB SCH (13:15)
[2021-03-30 16:19] VITALS: TEMP 98.1
[2021-03-30 17:14] LABS: Potassium 3.9 mmol/L (3.5-5.1)
[2021-03-30 19:50] VITALS: BP 130/70
== END 2021-03-30 20:15 | disposition home or self-care (01) | DRG 394 ==
LOC: ERS 21:01 → 2NO 03-29 00:26
PROVIDERS: ADMIT Student in an Organized Health Care Education/Training Program; ATTEND Internal Medicine
DX: R11.15 Cyclical vomiting syndrome unrelated to migraine (principal); E87.2 Acidosis; E87.1 Hypo-osmolality and hyponatremia; E87.3 Alkalosis; Z68.41 Body mass index [BMI] 40.0-44.9, adult; Z20.822 Contact with and (suspected) exposure to COVID-19; K21.9 Gastro-esophageal reflux disease without esophagitis; F17.210 Nicotine dependence, cigarettes, uncomplicated; F12.10 Cannabis abuse, uncomplicated; E87.6 Hypokalemia; E86.9 Volume depletion, unspecified; E66.01 Morbid (severe) obesity due to excess calories; Z90.49 Acquired absence of other specified parts of digestive tract
CPT/HCPCS: 36415; 74177; 80048; 80053; 81003; 82550; 83605; 83690; 83735; 84100; 84484; 85025; 93005; C9113; J1200; J1630; J2550; J3475; J3480